=== PATIENT | male | born 1965 | race Caucasian/White ===

== ENCOUNTER → 2023-04-15 | Outpatient (CLI) | payer OTHER ==
[2023-04-15 10:32] LABS: AMYLASE 12 U/L (25-115); LIPASE < 10 U/L (16-77)
== END | disposition home or self-care (01) ==
LOC: MSR 09:50 → RADPV 09:50
PROVIDERS: ATTEND Chiropractor
DX: I35.1 Nonrheumatic aortic (valve) insufficiency (principal); M47.814 Spondylosis without myelopathy or radiculopathy, thoracic region; I25.2 Old myocardial infarction; R07.9 Chest pain, unspecified; K86.1 Other chronic pancreatitis
CPT/HCPCS: 71046; 82150; 83690; 93306; 36415-L1; 36415-TC